=== PATIENT | male | born 1980 | race Caucasian/White ===

== ENCOUNTER → 2024-10-09 08:38 | Outpatient (REF) | payer OTHER, SELFPAY | LOC: HWRAD 08:38 | PROVIDERS: ATTENDING PHYSICIAN Family Medicine | DX: M25.561 Pain in right knee (principal) | CPT/HCPCS: 73564 ==

== ENCOUNTER 2025-07-12 06:17 | Day surgery (SDC) | payer OTHER, SELFPAY | END 2025-07-12 11:32 | disposition home or self-care (01) | LOC: GI 06:17 | PROVIDERS: ATTENDING PHYSICIAN Internal Medicine Gastroenterology | DX: Z12.11 Encounter for screening for malignant neoplasm of colon (principal); K64.8 Other hemorrhoids; Z83.719 Family history of colon polyps, unspecified | CPT/HCPCS: G0105 ==